=== PATIENT | female | born 1985 | race Caucasian/White ===

== ENCOUNTER 2017-09-24 12:26 | Emergency (ER) | payer OTHER ==
[2017-09-24 12:35] VITALS: BP 139/76
--- NOTE | 2017-09-24 12:35 | ER Document Report ---
HPI - HPI Patient complains to provider of: Dulled hearing to the left ear Onset: Just prior to arrival Onset/Duration: Sudden Quality of pain: Achy Pain Level: 2 Context: 32-year-old female complaining of ear pressure and fullness decreasing her hearing in her left ear and a recent upper respiratory infection with cough sinus congestion. Her mother and brother are both treated with antibiotics after a similar illness between Wednesday and . Her symptoms started yesterday. No fever or chills. Associated Symptoms: None Exacerbated by: Denies Relieved by: Denies Similar symptoms previously: No Recently seen / treated by doctor: No - ROS ROS below otherwise negative: Yes Systems Reviewed and Negative: Yes All other systems reviewed and negative - CONSTITUTIONAL Constitutional: DENIES: Chills - EENT EENT: REPORTS: Sore Throat, Ear Pain Past Medical History - General Information source: Patient - Social History Smoking Status: Never Smoker Frequency of alcohol use: None Drug Abuse: None Lives with: Family Family History: Reviewed & Not Pertinent Patient has suicidal ideation: No Patient has homicidal ideation: No - Medical History Medical History: Negative Renal/ Medical History: Denies: Hx Peritoneal Dialysis Surgical Hx: Negative Vertical Provider Document - CONSTITUTIONAL Agree With Documented VS: Yes Exam Limitations: No Limitations General Appearance: No Apparent Distress - HEENT HEENT: Normocephalic. negative: Conjuctival Injection, Pharyngeal Erythema, Tympanic Membrane Red, Tympanic Membrane Bulging Notes: Minimal serous fluid behind the left TM - NECK Neck: Supple. negative: Lymphadenopathy-Left, Lymphadenopathy-Right - RESPIRATORY Respiratory: Breath Sounds Normal, No Respiratory Distress - CARDIOVASCULAR Cardiovascular: Regular Rate - GI/ABDOMEN Gastrointestinal: Abdomen Soft, Abdomen Non-Tender, No Organomegaly - MUSCULOSKELETAL/EXTREMETIES Musculoskeletal/Extremeties: MAEW - NEURO Level of Consciousness: Alert Course - Re-evaluation Re-evalutation: 09/24/17 12:44 Patient agreed to hold off on antibiotics to see if this viral illness resolves in a week. She is from [place] and visiting in the area. If she is still sick after a week she will start antibiotics. - Vital Signs Vital signs: Temp Pulse Resp BP Pulse Ox 98.7 F 111 H 16 139/76 H 99 09/24/17 12:34 09/24/17 12:34 09/24/17 12:34 09/24/17 12:34 09/24/17 12:34 Discharge - Discharge Clinical Impression: Upper respiratory infection Qualifiers: URI type: unspecified viral URI Qualified Code(s): J06.9 - Acute upper respiratory infection, unspecified Serous otitis media Qualifiers: Chronicity: acute Laterality: left Recurrence: not specified as recurrent Qualified Code(s): H65.02 - Acute serous otitis media, left ear Condition: Good Disposition: HOME, SELF-CARE Instructions: Acetaminophen, Augmentin ([facility]), Serous Otitis Media ([facility]), Upper Respiratory Illness ([facility]) Additional Instructions: [id number] Mucinex decongestant Antihistamines [id number]-[id number] Drink plenty of fluids Rest If you are still sick after 7 days start the Augmentin Return to the emergency room while visiting the area if symptoms worsen Saline nasal spray Prescriptions: Amoxicillin/Potassium Clav [Augmentin 875-125 Tablet] 1 each PO BID #14 tablet
== END 2017-09-24 13:19 | disposition home or self-care (01) ==
LOC: ER 12:26
DX: H65.02 Acute serous otitis media, left ear (principal); J06.9 Acute upper respiratory infection, unspecified; B97.89 Other viral agents as the cause of diseases classified elsewhere; R05 Cough; R09.81 Nasal congestion; J02.9 Acute pharyngitis, unspecified
CPT/HCPCS: 99282